=== PATIENT | male | born 1970 | race Caucasian/White ===

== ENCOUNTER 2016-10-05 18:25 | Emergency (ER) | payer OTHER ==
[~2016-10-05] VITALS: Ht 185.4 cm; Wt 100.9 kg
[2016-10-05] MEDS ORDERED: ROBAXIN750 MG PO (23:19)
[2016-10-05 23:43] VITALS: BP 147/89
== END 2016-10-05 23:44 | disposition home or self-care (01) ==
LOC: EXP 18:25 → EME 18:25 → EXP 23:44
PROC: F09Z3ZZ Cerumen Management Treatment (ICD-10-PCS; principal; 2016-10-05)
DX: H61.21 Impacted cerumen, right ear (principal); H61.22 Impacted cerumen, left ear; M62.830 Muscle spasm of back
CPT/HCPCS: 99281; 99284

== ENCOUNTER 2016-11-29 16:25 | Emergency (ER) | payer OTHER ==
[~2016-11-29] VITALS: Ht 185.4 cm; Wt 100.1 kg
[~2016-11-29 16:25] MED LIST: ROBAXIN750 MG PO
[2016-11-29 17:04] VITALS: BP 135/94
== END 2016-11-29 17:07 | disposition left against medical advice (07) ==
LOC: EME 16:25
DX: R06.02 Shortness of breath (principal); Z53.21 Procedure and treatment not carried out due to patient leaving prior to being seen by health care provider